=== PATIENT | female | born 1950 ===

== ENCOUNTER 2017-11-13 11:14 | Emergency (ER) | payer MEDICARE, OTHER ==
[2017-11-13 11:19] VITALS: BMI 31.8
--- NOTE | 2017-11-13 13:16 | RAD ---
HISTORY: Upper back pain COMPARISON: 03/08/2016. TECHNIQUE: Chest PA and lateral FINDINGS: LINES AND TUBES: None. LUNG AND PLEURA: The lungs are well inflated and clear. No pleural effusion or pneumothorax. HEART AND MEDIASTINUM: The heart is not enlarged. The hilar and mediastinal contours are within normal limits. SKELETAL STRUCTURES: There is an S-shaped scoliosis in the thoracolumbar spine. VISUALIZED UPPER ABDOMEN: Normal. OTHER FINDINGS: None. IMPRESSION: No active pulmonary disease.
--- NOTE | 2017-11-13 13:34 | C.PDOC ---
History Of Present Illness Patient comes to ER reporting pain to her upper back, radiating to her left shoulder. She states pain is reproducible with movement and turning. She denies any shortness of breath, chest pain, trauma or injury. She reports a recent evaluation by her Sheet Tester and states she had a baseline EKG. No other complaints. Time Seen by Provider: 11/13/17 11:25 Chief Complaint (Nursing): Back Pain History Per: Patient History/Exam Limitations: no limitations Onset/Duration Of Symptoms: Days, Persistent Quality Of Discomfort: "Pain" Associated Symptoms: denies: New Weakness, New Numbness Exacerbating Factor(s): Turning, Movement Additional History Per: Patient Past Medical History Reviewed: Historical Data, Nursing Documentation, Vital Signs Vital Signs: Last Vital Signs Temp 98.0 F 11/13/17 11:20 Pulse 71 11/13/17 11:20 Resp 18 11/13/17 11:20 BP 148/71 11/13/17 11:20 Pulse Ox 98 11/13/17 11:20 - Medical History PMH: Arthritis, Asthma, COPD, HTN, Hypercholesterolemia Surgical History: No Surg Hx Family History: States: No Known Family Hx - Social History Hx Tobacco Use: No Hx Alcohol Use: No Hx Substance Use: No - Immunization History Hx Tetanus Toxoid Vaccination: No Hx Influenza Vaccination: No Hx Pneumococcal Vaccination: No Review Of Systems Cardiovascular: Negative for: Chest Pain Respiratory: Negative for: Shortness of Breath Musculoskeletal: Positive for: Shoulder Pain, Back Pain Physical Exam - Physical Exam Appears: Non-toxic Skin: Normal Color, Warm, Dry, No Rash, No Other (lesions) Head: Atraumatic, Normacephalic Eye(s): bilateral: Normal Inspection Neck: Normal ROM, No Midline Cervical Tenderness, No Paracervical Tenderness, Supple Chest: Symmetrical, No Tenderness Cardiovascular: Rhythm Regular Respiratory: Normal Breath Sounds Back: No Vertebral Tenderness, Paraspinal Tenderness (tenderness to left upper back, near scapula and posterior shoulder region) Extremity: Normal ROM (FROM at bilateral shoulders), No Tenderness, No Deformity, No Swelling Neurological/Psych: Oriented x3 ED Course And Treatment ECG Rhythm: Nonspecific Changes ECG Interpretation: No Acute Changes Rate From EC O2 Sat by Pulse Oximetry: 98 (RA) Pulse Ox Interpretation: Normal - Radiology CXR: Interpreted by Me, Viewed By Me CXR Interpretation: Yes: No Acute Disease - Other Rad Left shoulder X-Ray: Read By Radiologist Interpretation: FINDINGS: BONES: There is diffuse bone demineralization. No acute displaced fracture or bone destruction. JOINTS: Mild degenerative osteoarthrosis in the acromioclavicular joint. The glenohumeral joint is normal. SOFT TISSUES: Normal. OTHER FINDINGS: None. IMPRESSION: No acute fracture or dislocation. Mild degenerative osteoarthrosis in the acromioclavicular joint. Progress Note: CXR and shoulder XR reviewed with no actue findings. Patient to be discharged home with pain medications and instructed to follow up with PMD in 2-3 days. Disposition - Disposition Disposition: HOME/ ROUTINE Disposition Time: 13:32 Condition: STABLE Additional Instructions: FOLLOW UP WITH YOUR PMD WITHIN 1-2 DAYS. RETURN TO ED IF FEEL WORSE. Prescriptions: Lidocaine 5% [Lidoderm] 1 patch TP DAILY #30 patch Naproxen [Naprosyn] 1 tab PO BID PRN #25 tab PRN Reason: Pain Instructions: Upper Back Pain (DC) Forms: [employer] ([place]) Print Language: PERSIAN - Clinical Impression Clinical Impression: Thoracic back pain - PA / [employer] / Resident Statement MD/DO has reviewed & agrees with the documentation as recorded. - Scribe Statement The provider has reviewed the documentation as recorded by the Lyssa Pierre Provider Attestation: All medical record entries made by the Lyssa were at my direction and personally dictated by me. I have reviewed the chart and agree that the record accurately reflects my personal performance of the history, physical exam, medical decision making, and the department course for this patient. I have also personally directed, reviewed, and agree with the discharge instructions and disposition.
[2017-11-13 13:41] VITALS: BP 144/70; PULSE 72; RESP 16; TEMP 98.2
--- NOTE | 2017-11-13 14:05 | RAD ---
Date of service: 11/13/2017 PROCEDURE: Radiographs of the Left Shoulder HISTORY: pain COMPARISON: No prior. FINDINGS: BONES: There is diffuse bone demineralization. No acute displaced fracture or bone destruction. JOINTS: Mild degenerative osteoarthrosis in the acromioclavicular joint. The glenohumeral joint is normal. SOFT TISSUES: Normal. OTHER FINDINGS: None. IMPRESSION: No acute fracture or dislocation. Mild degenerative osteoarthrosis in the acromioclavicular joint.
[2017-11-13 15:48] VITALS: O2SAT 98
--- NOTE | 2017-11-15 12:43 | CARD ---
APPROVED REPORT Date of service: 11/13/2017 EKG Measurement Heart [id number] <Conclusion> Normal sinus rhythm Nonspecific T wave abnormality Abnormal ECG
== END 2017-11-13 13:40 | disposition home or self-care (01) ==
LOC: C.ER 11:14
DX: M54.6 Pain in thoracic spine (principal)